=== PATIENT | female | born 1975 | race Caucasian/White ===

== ENCOUNTER 2018-02-18 00:40 | Emergency (ER) | payer MEDICAID ==
[~2018-02-18] VITALS: Ht 165.1 cm; Wt 80.0 kg
[2018-02-18] MEDS ORDERED: IBUPROFEN 600MG TABLET PO ONE (01:45)
[2018-02-18] MEDS ORDERED: TETANUS, DIPHTHERIA, PERTUSSIS VAC/PF 0.5ML (>7YR OLD) IM ONE (01:45)
[2018-02-18] MEDS ORDERED: BACITRACIN ZINC OINT UDPKT TOP ONE (01:45)
[2018-02-18] MEDS ORDERED: LIDOCAINE HCL 1% 20ML VIAL (Pyxis) INJ MC ONE (01:45)
[2018-02-18] MEDS ORDERED: SODIUM CHLORIDE 0.9% 1,000 ML IV ONE (01:45)
[2018-02-18 02:18] LABS: BASOPHILS % 0.8 % (0.0-2.0); HEMATOCRIT. 44.9 % (36.0-48.0); HEMOGLOBIN. 15.1 g/dL (12.0-16.0); MEAN CORPUSCULAR HEMOGLOBIN 30.2 pg (28.0-32.0); MEAN CORPUSCULAR VOLUME 89.7 fL (81.0-99.0); MEAN PLATELET VOLUME 8.4 fl (7.4-10.4); MONOCYTES % 7.8 % (2.0-8.0); NEUTROPHILS % 57.4 % (40.0-76.0); PLATELET 111 x1000/uL (130-400); RED BLOOD CELL COUNT 5.01 mill/uL (4.2-5.4); RED CELL DISTRIBUTION WIDTH 14.2 % (11.6-14.6)
[2018-02-18 02:23] LABS: CHLORIDE 110 mEq/L (98-107)
[2018-02-18 02:28] LABS: ETHANOL BLOOD 230 mg/dL
[2018-02-18 02:29] LABS: HCG SCREEN NEGATIVE
[2018-02-18] MEDS ORDERED: PHENYTOIN SODIUM 1,000 MG in SODIUM CHLORIDE 0.9% 100 ML IV ONE (03:00)
[2018-02-18 03:36] LABS: *AMPHETAMINES SCREEN URINE NEGATIVE (NEGATIVE); *BARBITURATES SCREEN URINE NEGATIVE (NEGATIVE); *BENZODIAZEPINES SCREEN URINE NEGATIVE (NEGATIVE); *COCAINE SCREEN URINE NEGATIVE (NEGATIVE); METHADONE URINE SCREEN NEGATIVE (NEGATIVE)
[2018-02-18 03:37] LABS: CANNABINOID URINE SCREEN NEGATIVE (NEGATIVE); PHENCYCLIDINE URINE SCREEN NEGATIVE (NEGATIVE)
[2018-02-18 03:47] LABS: OPIATES URINE SCREEN PRESUMTIVE POSITIVE (NEGATIVE)
[2018-02-18 05:41] VITALS: BP 99/52
== END 2018-02-18 07:05 | disposition home or self-care (01) ==
LOC: ER 04:45
DX: G40.909 Epilepsy, unspecified, not intractable, without status epilepticus (principal); S01.81XA Laceration without foreign body of other part of head, initial encounter; R51 Headache; S61.411A Laceration without foreign body of right hand, initial encounter; F10.129 Alcohol abuse with intoxication, unspecified; Y90.7 Blood alcohol level of 200-239 mg/100 ml; I95.9 Hypotension, unspecified; G93.89 Other specified disorders of brain; M62.81 Muscle weakness (generalized); W01.0XXA Fall on same level from slipping, tripping and stumbling without subsequent striking against object, initial encounter; Y93.89 Activity, other specified; Y92.038 Other place in apartment as the place of occurrence of the external cause; Z23 Encounter for immunization; Z98.890 Other specified postprocedural states
CPT/HCPCS: 12002; 36415; 70450; 73130; 80053; 80185; 80305; 84703; 85025; 86850; 86900; 86901; 90471; 90715; 96361; 96365; 99285; G0482; J1165; J3490; J7030; Z7610; J7050